=== PATIENT | male | born 1950 | race Caucasian/White ===

== ENCOUNTER 2018-05-01 13:50 | Inpatient (IN) ==
[2018-05-01 14:55] LABS: Basophils % 0.8 % (0.0-0.8); Hematocrit 30.2 VOL% (42.0-52.0); Hemoglobin 10.4 GM/DL (14.0-18.0); Immature Granulocytes % 0.4 %; Immature Granulocytes Absolute 0.02 #; Lymphocytes % 20.7 % (21.2-54.2); Mean Corpuscular HGB Conc 34.4 GM/DL (32-36); Mean Corpuscular Hemoglobin 35 PG (27-34); Mean Corpuscular Volume 101.7 FL (87-102); Monocytes # 0.3 10*3/uL (0.11-0.8); Monocytes % 5.3 % (1.7-12.7); Neutrophils # 3.4 10*3/uL (1.4-7.4); Neutrophils % 72.8 % (38.7-73.9); Platelet Count 200 T/CUMM (130-400); Red Blood Count 2.97 MC/CUMM (3.8-5.5); Red Cell Distribution Width 14.6 % (9.3-17.3); White Blood Count 4.7 T/CUMM (4-12)
[2018-05-01 14:58] LABS: Apearance,Urine CLEAR (Clear); Bacteria,Urine Occasional /HPF (Few); Bilirubin,Urine Negative (Negative); Blood, Urine Negative (Negative); Glucose,Urine (UA) Negative (Negative); Ketones,Urine Negative (Negative); Nitrite,Urine Negative (Negative); Protein,Urine Negative; RBC,Urine <1 /HPF (0-4); Urine Color Yellow (Yellow); Urine Specific Gravity 1.005 (1.001-1.035); Urine Urobilinogen < 2.0 EU/DL (0.2-1.0); WBC,Urine <1 /HPF (0-6)
[2018-05-01 15:05] LABS: INR 1.1; PT Patient Result 11.5 SECS
[2018-05-01 15:15] LABS: Albumin 3.8 G/DL (3.4-5.0); Bilirubin,Total 0.6 MG/DL (0.2-1.0); Calcium 8.6 MG/DL (8.5-10.1); Osmolality,Calculated 257.8 MOS/KG (273-304); Potassium 3.7 MMOL/L (3.5-5.1); Total Protein 6.9 G/DL (6.4-8.3)
[2018-05-01 16:25] LABS: % Iron Saturation 24.1 % (18-50)
[2018-05-01 16:34] LABS: Folate 19.4 NG/ML (5.4-24.0)
[2018-05-01] MEDS ORDERED: ONDANSETRON 4 MG/2 ML VIAL IV PRN (16:51)
[2018-05-01] MEDS ORDERED: NICOTINE 21 MG/24 HR PATCH TRANSDERM PRN (16:51)
[2018-05-01] MEDS: ALBUTEROL/IPRATROPIUM 3 ML NEB RESP TX SCH (19:18)
[2018-05-01] MEDS ORDERED: PNEUMOCOCCAL VACCINE (13 VALENT) 0.5 ML SYRINGE IM ONE (20:43)
[2018-05-01] MEDS ORDERED: INFLUENZA VIRUS VACCINE 0.5 ML SYRINGE IM ONE (20:43)
[2018-05-01 21:18] LABS: Hemoglobin 10.3 GM/DL (14.0-18.0)
[2018-05-01] MEDS: PANTOPRAZOLE 40 MG TABLET PO SCH ×2 (21:50→21:52)
[2018-05-01] MEDS: BUDESONIDE/FORMOTEROL 160-4.5 INHALER 6 GM INH SCH (21:50)
[2018-05-02] MEDS: ALBUTEROL/IPRATROPIUM 3 ML NEB RESP TX SCH ×4 (00:19→19:38)
[2018-05-02 04:13] LABS: Hematocrit 29.3 VOL% (42.0-52.0); Hemoglobin 10.2 GM/DL (14.0-18.0)
[2018-05-02 07:17] LABS: Alanine Aminotransferase 28 U/L (16-61); Albumin 3.2 G/DL (3.4-5.0); Alkaline Phosphatase 97 U/L (45-117); Aspartate Amino Transferase 45 U/L (0-37); Bilirubin,Total < 0.39 MG/DL (0.2-1.0); Blood Urea Nitrogen 13 MG/DL (7-18); Calcium 8.4 MG/DL (8.5-10.1); Glucose 65 MG/DL (74-106); Osmolality,Calculated 263.4 MOS/KG (273-304); Potassium 3.6 MMOL/L (3.5-5.1); Sodium 133 MMOL/L (136-145); Total Protein 6.3 G/DL (6.4-8.3)
[2018-05-02 08:18] LABS: Calcium 8.5 MG/DL (8.5-10.1); Osmolality,Calculated 260.7 MOS/KG (273-304); Potassium 3.9 MMOL/L (3.5-5.1)
[2018-05-02] MEDS: PANTOPRAZOLE 40 MG TABLET PO SCH ×4 (08:33→22:26)
[2018-05-02] MEDS: BUDESONIDE/FORMOTEROL 160-4.5 INHALER 6 GM INH SCH ×2 (08:33→21:59)
[2018-05-02 09:05] LABS: Hematocrit 30.2 VOL% (42.0-52.0); Hemoglobin 10.2 GM/DL (14.0-18.0)
[2018-05-02] MEDS: ENOXAPARIN 40 MG/0.4 ML SYRINGE SUBCUT SCH (12:39)
[2018-05-03] MEDS: ALBUTEROL/IPRATROPIUM 3 ML NEB RESP TX SCH ×2 (01:46→08:11)
[2018-05-03 08:05] LABS: Basophils % 0.8 % (0.0-0.8); Hematocrit 32.2 VOL% (42.0-52.0); Immature Granulocytes % 0.2 %; Immature Granulocytes Absolute 0.01 #; Lymphocytes # 0.9 10*3/uL (1.4-4.0); Lymphocytes % 17.9 % (21.2-54.2); Mean Corpuscular HGB Conc 34.2 GM/DL (32-36); Mean Corpuscular Hemoglobin 35 PG (27-34); Mean Corpuscular Volume 101.3 FL (87-102); Mean Platelet Volume 9.6 FL (9.6-12.0); Monocytes # 0.3 10*3/uL (0.11-0.8); Monocytes % 5.1 % (1.7-12.7); Neutrophils # 3.9 10*3/uL (1.4-7.4); Platelet Count 233 T/CUMM (130-400); Red Blood Count 3.18 MC/CUMM (3.8-5.5); Red Cell Distribution Width 15.1 % (9.3-17.3); White Blood Count 5.1 T/CUMM (4-12)
[2018-05-03 08:33] LABS: Calcium 8.8 MG/DL (8.5-10.1); Osmolality,Calculated 263.5 MOS/KG (273-304); Potassium 4.3 MMOL/L (3.5-5.1)
[2018-05-03] MEDS: BUDESONIDE/FORMOTEROL 160-4.5 INHALER 6 GM INH SCH (08:43)
[2018-05-03] MEDS: PANTOPRAZOLE 40 MG TABLET PO SCH (08:55)
[2018-05-03] MEDS ORDERED: PHENYLEPHRINE 1 MG/10 ML SYRINGE IV ONE (09:00)
[2018-05-03] MEDS ORDERED: LIDOCAINE 2% 5 ML VIAL ONE (09:00)
[2018-05-03] MEDS ORDERED: PROPOFOL 200 MG/20 ML VIAL IV ONE (09:00)
[2018-05-03] MEDS: ENOXAPARIN 40 MG/0.4 ML SYRINGE SUBCUT SCH (13:42)
[2018-05-03] MEDS ORDERED: LACTATED RINGERS 500 ML IV ONE (14:02)
[2018-05-03 16:03] VITALS: BP 117/71
== END 2018-05-03 16:16 | disposition home or self-care (01) | DRG 812 ==
LOC: N.ED 13:50 → SUATTDRO 16:10 → N.EDINP 16:10 → N.5E 19:25
PROVIDERS: ADMIT Internal Medicine; ATTEND Hospitalist